=== PATIENT | male | born 1995 | race African-American/Black ===

== ENCOUNTER 2019-03-06 07:15 | Emergency (ER) | payer OTHER, MEDICAID, SELFPAY ==
--- NOTE | 2019-03-06 07:16 | DI.RAD.S_ITS ---
PROCEDURE: XR SHOULDER RT MIN 2V INDICATIONS: shoulder pain TECHNIQUE: 3 views of the shoulder were acquired. COMPARISON: None. FINDINGS: Bones: No fractures or dislocations. No suspicious bony lesions. Visualized ribs appear intact. Soft tissues: No suspicious soft tissue calcifications. IMPRESSION: No evidence acute bony abnormality of the right shoulder Dictated by: Kenn Garcia M.D. on 03/06/2019 at 7:49 Approved by: Kenn Garcia M.D. on 03/06/2019 at 7:49
[2019-03-06 07:30] VITALS: BP 155/90; PULSE 82; RESP 16; TEMP 36.1; O2SAT 98
--- NOTE | 2019-03-06 07:34 | ED.GENADULT ---
HPI - General Adult General Chief complaint: Extremity Injury, Upper Stated complaint: RIGHT SHOULDER PAIN Time Seen by Provider: 03/06/19 07:16 Source: patient Mode of arrival: Ambulatory Limitations: no limitations History of Present Illness HPI narrative: 23-year-old male here for evaluation of right shoulder pain. Patient states he [place] yesterday and this morning he woke up with the pain. There was no specific injury yesterday that caused him any discomfort. No neck pain. No elbow or wrist pain. No other injuries reported. Has not tried anything for symptoms prior to arrival Related Data Allergies Allergy/AdvReac Type Severity Reaction Status Date / Time No Known Drug Allergies Allergy Verified 03/06/19 07:53 Review of Systems Constitutional Constitutional: Denies fatigue and Denies headache(s) ENT Ears, Nose, Mouth, and Throat: Denies headache(s) Cardiovascular Cardiovascular: Denies dyspnea Respiratory Respiratory: Denies dyspnea Gastrointestinal Gastrointestinal: Denies abdominal pain, Denies nausea and Denies vomiting Musculoskeletal Musculoskeletal: Denies tingling Comments: Right shoulder pain Integumentary/Breasts Skin/Breast: Denies rash Neurologic Neurologic: Denies headache(s), Denies tingling and Denies paresthesias Endocrine Endocrine: Denies fatigue Hematologic/Lymphatic Hematologic/Lymphatic: Denies easy bleeding and Denies easy bruising Patient History Medical History Patient denies medical problems (Acute) Social History marital status: lives independently: Yes Substance Use Type: does not use Exam Initial Vital Signs Initial Vital Signs: Vital Signs Temperature 97 F L 03/06/19 07:30 Pulse Rate 82 03/06/19 07:30 Respiratory Rate 16 03/06/19 07:30 Blood Pressure 155/90 H 03/06/19 07:30 Pulse Oximetry 98 03/06/19 07:30 Const General: cooperative and comfortable Orientation: alert and awake HENMT Head: normal to inspection and normocephalic Resp Effort & Inspection: normal respiratory effort Cardio Rate: regular rate Pulses: radial pulses present on the right Skin Lesions: no lesions Rashes: no rashes Neuro General: alert, awake and oriented x3 Speech: speech normal Sensory Exam: no sensory deficits noted Extrem Other: Tenderness to palpation over the AC joint. Also has tenderness to palpation with the Grant test. Neer test is negative. Elbow and wrist unremarkable Psych Appearance: grossly normal and well kempt Course Orders Ordered: ED Orders 03/06/19 07:16 XR shoulder RT min 2V Stat Vital Signs Vital signs: Vital Signs - 8 hr 03/06/19 07:30 Temperature 97 F L Pulse Rate 82 Respiratory Rate 16 Blood Pressure 155/90 H Pulse Oximetry 98 Medical Decision Making Imaging Data XR shoulder: Radiologist's impression: [address] [address] XRay Report Signed Patient: Carmelo Us TMR#: [id number] : 1995Acct:[id number] Age/Sex: 23 / MDate of Service: 03/06/19 Loc: ED Accession Number: [id number] Procedure: XR shoulder RT min 2V Ordering Provider: Brian Belcher D.O. PROCEDURE: XR SHOULDER RT MIN 2V INDICATIONS: shoulder pain TECHNIQUE: 3 views of the shoulder were acquired. COMPARISON: None. FINDINGS: Bones: No fractures or dislocations. No suspicious bony lesions. Visualized ribs appear intact. Soft tissues: No suspicious soft tissue calcifications. IMPRESSION: No evidence acute bony abnormality of the right shoulder Dictated by: Kenn Garcia M.D. on 03/06/2019 at 7:49 Approved by: Kenn Garcia M.D. on 03/06/2019 at 7:49 MDM Narrative Medical decision making narrative: Patient is neurovascularly intact. X-ray showed no acute bony pathology. I do suspect that he has sprained his shoulder. I have low suspicion for a muscular tear. We did discuss the use of anti-inflammatories and ice. Discussed return precautions and follow-up instructions. He expressed understanding and agreement with plan. Discharge Plan Departure Patient Disposition: Home Clinical Impression: Shoulder sprain Qualifiers: Encounter type: initial encounter Shoulder sprain type: unspecified sprain Laterality: right Qualified Code(s): S43.401A - Unspecified sprain of right shoulder joint, initial encounter Instructions: DI for Shoulder Sprain Activity Restrictions/Additional Instructions: Recommend that use any anti-inflammatories such as Motrin or Naprosyn. You can buy these [id number]. I also recommend that you ice your shoulder. Contact your primary care provider for a follow-up. You have no restrictions on your activities. Return to the emergency department for any new symptoms.
== END 2019-03-06 08:14 | disposition home or self-care (01) ==
PROVIDERS: Emergency Provider Emergency Medicine
DX: S43.401A Unspecified sprain of right shoulder joint, initial encounter (principal); Y93.39 Activity, other involving climbing, rappelling and jumping off
CPT/HCPCS: 73030; 99282; 99283